=== PATIENT | male | born 1970 | race Caucasian/White ===

== ENCOUNTER 2016-03-11 09:59 | Emergency (ER) | payer BC, OTHER ==
[~2016-03-11] VITALS: Ht 152.4 cm; Wt 79.0 kg
[2016-03-11 10:03] VITALS: Ht 152.4 cm; Wt 79.0 kg
[2016-03-11] MEDS ORDERED: KETOROLAC 30 MG INJ IV STA (10:41)
[2016-03-11] MEDS ORDERED: ONDANSETRON 4 MG INJ IV STA (10:41)
[2016-03-11] MEDS ORDERED: SOD CHLORIDE 0.9% 1,000 ML IV STA (10:41)
--- NOTE | 2016-03-11 11:09 | RADRPT ---
PROCEDURE: CT Abdomen and Pelvis without contrast. CLINICAL INDICATION: Abdominal and pelvic pain. Right flank pain. TECHNIQUE: CT scan of the abdomen and pelvis without contrast was performed. Coronal and sagittal reformatted images were obtained from the axial source images. Images were reviewed on a high-resolu [employer] PACS workstation. Total exam DLP is 968.43 mGy-cm. CTDIvol is 16.33 mGy. One or more of the f ollowing dose reduction techniques were used: Automated exposure control, adjustment of the mA and/o r kV according to patient size, use of iterative reconstruction technique. COMPARISON: None. FINDINGS: The lung bases are normal. There is no pleural effusion. The liver is normal in size and diffusely decreased attenuation consistent with fatty metamorphosis. There is no focal hepatic lesion. The gallbladder and bile ducts are normal. The spleen is normal in size. There is no focal splenic lesion. Both adrenals are normal with no enlargement or mass. The pancreas is unremarkable with no mass or evidence of pancreatitis. There is no renal mass or hydronephrosis. There is a nonobstructing 0.6 x 0.3 cm calculus in the lo wer right kidney and a nonobstructing 0.3 x 0.3 cm calculus in the lower left kidney. There is mode rate right hydroureteronephrosis due to an obstructing calculus at the right ureterovesicle junction measuring 0.4 x 0.5 cm. There is no other urinary tract calculus. There is no left hydronephrosis . There is mild right perinephric edema. The perirenal regions are otherwise normal. The abdominal aorta is not dilated. There is no retroperitoneal lymphadenopathy or mass. There is no pelvic lymphadenopathy or mass. The bladder and distal ureters are normal. The appendix is well seen and appears normal. The bowel and mesentery are normal. There is no free fluid or free gas. There are degenerative changes of the lower lumbar spine. The osseous structures are otherwise norm al with no fracture or lytic lesion. IMPRESSION: 1. Fatty metamorphosis of the liver. 2. Nonobstructing bilateral renal calculi. 3. Obstructing 0.4 x 0.5 cm calculus at the right ureterovesicle junction with associated moderate right hydroureteronephrosis. Mild right perinephric edema. 4. Normal appendix. 5. Mild degenerative changes of the lower lumbar spine. 6. Otherwise unremarkable noncontrast CT scan of the abdomen and pelvis. RPTAT: QQ .Alejandro Michelle MD, Date Time Electronically viewed and signed by .Alejandro Michelle MD, MD on 03/11/2016 11:09 .R/
[2016-03-11 11:37] LABS: ADD UMIC YES; URINE BILIRUBIN (Dip) NEGATIVE (NEGATIVE); URINE BLOOD (Dip) 2+ (NEGATIVE); URINE COLOR LT. YELLOW (YELLOW); URINE GLUCOSE (Dip) NEGATIVE (NEGATIVE); URINE KETONES (Dip) NEGATIVE (NEGATIVE); URINE LEUKOCYTE ESTERASE (Dip) NEGATIVE (NEGATIVE); URINE NITRITE (Dip) NEGATIVE (NEGATIVE); URINE TOTAL PROTEIN (Dip) NEGATIVE (NEGATIVE); URINE UROBILINOGEN (Dip) 0.2 E.U./dL (0.1-1.0)
[2016-03-11 11:39] LABS: EOSINOPHILS % 0.1 % (0.0-7.0); HEMATOCRIT 47.3 % (42.0-52.0); HEMOGLOBIN 16.2 g/dl (14.0-18.0); LYMPHOCYTES # 1.1 10^3/ul (0.8-2.9); MEAN CORPUSCULAR HEMOGLOBIN 29.3 pg (29.0-33.0); MEAN CORPUSCULAR HGB CONC 34.2 g/dl (32.0-37.0); MEAN CORPUSCULAR VOLUME 85.8 fl (82.0-101.0); MEAN PLATELET VOLUME 8.6 fl (7.4-10.4); MONOCYTE # 0.8 10^3/ul (0.3-0.9); NEUTROPHILS % 87.9 % (39.0-77.0); PLATELET COUNT 273 10^3/UL (140-440); RED BLOOD COUNT 5.51 10^6/ul (4.70-6.10); RED CELL DISTRIBUTION WIDTH 13.3 % (11.5-14.5); UNCORRECTED WBC 15.9 10^3/ul (4.8-10.8); WHITE BLOOD COUNT 15.9 10^3/ul (4.8-10.8)
[2016-03-11 11:40] LABS: CONDITION 1
[2016-03-11 11:46] LABS: ALBUMIN 4.7 g/dl (3.3-4.9)
[2016-03-11 11:49] LABS: ALBUMIN/GLOBULIN RATIO 1.2; BILIRUBIN,INDIRECT 0.3 mg/dl (0-1.1); BILIRUBIN,TOTAL 0.3 mg/dl (0.2-1.3); CALCIUM 9.9 mg/dl (8.4-10.2); CREATININE 1.11 mg/dl (0.61-1.24); TOTAL PROTEIN 8.6 g/dl (6.1-8.1)
[2016-03-11] MEDS ORDERED: TAMS-14 PO (12:03)
[2016-03-11] MEDS ORDERED: NAPR-260 PO (12:03)
[2016-03-11] MEDS ORDERED: HYDR-906 PO (12:03)
[2016-03-11 12:20] VITALS: BP 139/78; PULSE 72; RESP 18; TEMP 98
--- NOTE | 2016-03-11 16:55 | ERD ---
DATE OF SERVICE: HISTORY OF PRESENT ILLNESS: The patient is a 45-year-old male coming in complaining of his right sh brooke flank pain, intermittently for the last week. The patient states that his episode has intensifi ed over the last 7 hours. He has had strong sharp pains in his right flank and it is not relieving. He was told a year ago that he had gallstones, which he did not follow up with. He had 2 episodes of vomiting earlier today. He has had normal urination and bowel movement. His last bowel movemen t was this morning. He has not taken medications for the pain. Denies any chest pain or shortness of breath, denies epigastric pain. Pain is localized to the flank. PAST MEDICAL HISTORY: Hypertension. MEDICATIONS: 1. Losartan. 2. Hydrochlorothiazide. ALLERGIES TO MEDICATIONS: DENIES. SURGICAL HISTORY: Ortho surgery. SOCIAL HISTORY: Denies. REVIEW OF SYSTEMS: A 12-point review of systems was done. Refer to HPI for positives, all other sy stems negative. PHYSICAL EXAMINATION VITAL SIGNS: Temperature 98, pulse 85, blood pressure is 155/94, respiratory 18, O2 saturation 99% on room air. Pain intensity is 0/10. GENERAL: The patient is well-appearing, well-nourished, no acute distress. HEENT: Atraumatic. Conjunctivae are pink. Pupils equal, round, and reactive to light. There is no s cleral icterus. Tympanic membranes clear bilaterally. Oropharynx clear. No nystagmus or photophobia . CHEST: Clear to auscultation bilaterally. There are no rales, wheezes or rhonchi. HEART: Regular rate and rhythm. No murmurs, clicks, rubs or gallops. No S3 or S4. ABDOMEN: Normoactive bowel sounds on auscultation. No tenderness or organomegaly. The patient has mild tenderness to palpation of the right flank, but there is no rebound tenderness, no CVA tendern ess. No right lower quadrant pain and no Shrestha sign. EMERGENCY ROOM COURSE: The patient had blood work done in the ER. CBC showed a white count of 15.9 with a shift. CMP showed mildly elevated BUN of 21, normal creatinine, urine showed 2+ blood. Pat ient had a CT abdomen and pelvis without contrast which showed: 1. Fatty metamorphosis of the liver. 2. Nonobstructing bilateral renal calculi. 3. Obstructing 0.4 x 0.5 cm calculus at the right ureterovesicular junction with associated moderat e right hydroureteronephrosis, mild right perinephric edema. 4. Normal appendix. 5. Mild degenerative changes of the lower lumbar spine. 6. Otherwise unremarkable noncontrast CT scan of the abdomen and pelvis. The patient was given a l iter of normal saline and Toradol. Upon reevaluation, the patient's symptoms improved and he stated his symptoms were resolved. DIAGNOSIS: Kidney stone. MEDICAL DECISION MAKING: I have low suspicion for septic stone, low suspicion for UTI, low suspicio n for acute kidney failure. Low suspicion for other acute abdominal etiologies. The patient's pain is well controlled in the ER. The patient's BUN and creatinine are within normal limits. The ted ent does not have signs of sepsis. No infection noted. DISCHARGE: The patient is discharged stable. Patient is told to follow up with primary care within 1 to 2 days for reevaluation. Patient is told to continue adequate hydration at home. Patient giv en a prescription for [place] and Flomax. All other questions answered at time of discharge. Dischar ge summary given at the time of departure. Patient understood and complied with plan. Dictated By: KANIKA CHI PA for ELI MALAGON/HEMAL Conf#: [id number] DID#: [id number]
== END 2016-03-11 12:21 | disposition home or self-care (01) ==
LOC: FTE 09:59
DX: N20.0 Calculus of kidney (principal); I10 Essential (primary) hypertension; R11.10 Vomiting, unspecified
CPT/HCPCS: 74176; 80053; 81001; 83690; 85025; J1885; J2405; J7030; 36415; 81003; 96374; 96375

== ENCOUNTER 2017-02-20 09:50 | Emergency (ER) | END 2017-02-20 11:00 | disposition home or self-care (01) ==